=== PATIENT | female | born 1940 | race Caucasian/White ===

== ENCOUNTER 2020-07-20 05:10 | Day surgery (SDC) | payer OTHER ==
--- OUTSIDE RECORDS SUMMARY | 2020-07-17 08:40 | XMS ---
:1940 Author Organization [facility] Support Name Relationship Address Phone RE, RETIRED Unavailable Unavailable Unavailable RE Unavailable Unavailable Unavailable RETIRED Unavailable Unavailable Unavailable AMALIA BRANCH DAUGHTER [address] [place] [address] Re-disclosure Warning The records that you are about to access may contain information from federally- assisted alcohol or drug abuse programs. If such information is present, then the following federally mandated warning applies: This information has been disclosed to you from records protected by federal confidentiality rules (42 CFR part 2). The federal rules prohibit you from making any further disclosure of this information unless further disclosure is expressly permitted by the written consent of the person to whom it pertains or as otherwise permitted by 42 CFR part 2. A general authorization for the release of medical or other information is NOT sufficient for this purpose. The Federal rules restrict any use of the information to criminally investigate or prosecute any alcohol or drug abuse patient.The records that you are about to access may contain highly sensitive health information, the redisclosure of which is protected by Article 27-F of the [facility] Public Health law. If you continue you may haveaccess to information: Regarding HIV / AIDS; Provided by facilities licensed or operated by the [facility] Office of Mental Health; or Provided by the [facility] Office for People With Developmental Disabilities. If such information is present, then the following [facility] mandated warning applies: This information has been disclosed to you from confidential records which are protected by state law. State law prohibits you from making any further disclosure of this information without the specific written consent of the person to whom it pertains, or as otherwise permitted by law. Any unauthorized further disclosure in violation of state law may result in a fine or senior living sentence or both. A general authorization for the release of medical or other information is NOT sufficient authorization for further disclosure. Allergies and Adverse Reactions Type Description Substance Reaction Status Data Source(s) Drug allergy doxylamine [facility] Drug allergy acetaminophen acetaminophen SHORTNESS OF [facility] Drug allergy ciprofloxacin HCl ciprofloxacin HCl [facility] Drug allergy pseudoephedrine HCl pseudoephedrine HCl SHORTNESS OF [place] [facility] Drug allergy dextromethorphan HBr dextromethorphan HBr SHORTNESS OF [place] [facility] Encounters Encounter Providers Location Date Indications Data Source(s ) Outpatient 09/01/2019 [facility] 01:52:00 PM EDT [facility] Insurance Providers Payer name Policy type Policy ID Covered Covered republican's Policy P irena / Coverage republican ID relationship to [employer] ormation type [employer] H[employer] MEDICARE [id number] SP [id number] VIP 1 HIP MONTE [id number] PT [id number] 01 MCARE 1 Problems, Conditions, and Diagnoses Code Display Name Description Problem Type Effective Dates Data Source(s) Z80.3 Family history of Z80.3 Diagnosis 09/01/2019 [facility] malignant neoplasm 01:52:00 PM EDT [facility] breast Z12.31 Encounter for Z12.31 Diagnosis 09/01/2019 [facility] s screening 01:52:00 PM EDT Hospital mammogram for malignant neoplasm of breast
[2020-07-19 14:42] VITALS: BMI 24.0
[~2020-07-20 05:10] MED LIST: BSS (NA/CA/MG/K) BALANCED SALT SOLUTION OPHTH SOLN 15 ML BOTTLE OS ONE; CHONDROITIN SU A/HYALUR SOD 1 KIT IO ONE; EPINEPHrine/PF 1 MG/1 ML (1:1,000) AMPULE SQ ONE; LIDOCAINE HCL 1% PRESERVATIVE FREE - 30ML VIAL IO ONE; POVIDONE-IODINE 5% OPHTHALMIC PREP 30 ML SOLUTION OS ONE; TETRACAINE 0.5% OPHTH SOLN 2 ML BOTTLE OS ONE; TOBRAMYCIN/DEXAMETHASONE OPHTH. OINTMENT 1 TUBE OS ONE
[2020-07-20] MEDS ORDERED: LIDOCAINE HCL/PF 1% SDV 5ML VIAL ONE (06:43)
[2020-07-20] MEDS ORDERED: POVIDONE-IODINE 5% OPHTHALMIC PREP 30 ML SOLUTION ONE (06:43)
[2020-07-20] MEDS ORDERED: TETRACAINE 0.5% OPHTH SOLN 2 ML BOTTLE ONE (06:43)
[2020-07-20] MEDS ORDERED: TOBRAMYCIN/DEXAMETHASONE OPHTH. OINTMENT 1 TUBE ONE (06:45)
[2020-07-20] MEDS ORDERED: CHONDROITIN SU A/HYALUR SOD 1 KIT ONE (06:45)
[2020-07-20] MEDS ORDERED: PHENYLEPHRINE 2.5% OPHTH SOLN 15 ML BOTTLE OP SCH (07:30)
[2020-07-20] MEDS ORDERED: TROPICAMIDE 1% OPHTH SOLN 15 ML BOTTLE OP SCH (07:30)
[2020-07-20] MEDS ORDERED: KETOROLAC TROMETHAMINE 0.5% EYE DROP 1 DROP DROPS OP SCH (07:30)
[2020-07-20] MEDS ORDERED: TROPICAMIDE 1% OPHTH SOLN 15 ML BOTTLE ONE (07:32)
[2020-07-20] MEDS ORDERED: DICLOFENAC SODIUM 0.1% OPHTHALMIC 2.5ML BOTTLE ONE (07:32)
[2020-07-20] MEDS ORDERED: TROPICAMIDE 1% OPHTH SOLN 15 ML BOTTLE OS ONE ×3 (08:05→08:25)
[2020-07-20] MEDS ORDERED: TOBRAMYCIN 0.3% OPHTH SOLN 5 ML BOTTLE OS ONE ×3 (08:05→08:25)
[2020-07-20] MEDS ORDERED: PHENYLEPHRINE 2.5% OPHTH SOLN 15 ML BOTTLE OS ONE ×3 (08:05→08:25)
[2020-07-20] MEDS ORDERED: KETOROLAC TROMETHAMINE 0.5% EYE DROP 1 DROP DROPS OS ONE ×3 (08:05→08:25)
[2020-07-20] MEDS ORDERED: MIDAZOLAM HCL 2 MG/2 ML SINGLE DOSE VIAL ONE (09:34)
--- NOTE | 2020-07-20 09:42 | HP ---
- Patient Scheduled date of Surgery: 07/20/20 Scheduled Surgical Procedure: Phacoemulsification and cataract extraction with PCIOL (complex due to miosis) Affected Eye: Left Chief Complaint (Indication for surgery): Decreased vision affecting ADLs - Ocular History Other Eye History: Other (ARMD) Eye Medications: tobramycin Previous Eye Surgery: none - Medical History Illnesses: Hypertension, Other (afib, thyroid disesase, costochondritis) Current Medications: Ambulatory Orders Amlodipine Besylate [Norvasc -] 5 mg PO DAILY 07/19/20 Aspirin Coated [Ecotrin -] 81 mg PO DAILY 07/19/20 Hydrochlorothiazide [Hctz -] 25 mg PO DAILY 07/19/20 Losartan Potassium [Cozaar] 100 mg PO DAILY 07/19/20 Spironolactone [Aldactone] 25 mg PO DAILY 07/19/20 Allergies/Adverse Reactions: Allergies Allergy/AdvReac Type Severity Reaction Status Date / Time acetaminophen [From NyQuil] Allergy Verified 07/20/20 07:35 ciprofloxacin [From Cipro] Allergy Verified 07/20/20 07:35 dextromethorphan Allergy Verified 07/20/20 07:35 [From NyQuil] doxylamine [From NyQuil] Allergy Verified 07/20/20 07:35 pseudoephedrine [From NyQuil] Allergy Verified 07/20/20 07:35 Ocular Examination - Best Corrected Visual Acuity Distance: Right eye: 20/40 Distance: Left eye: 20/40-3 - External/Slit Lamp Examination Abnormalities: band k nasally and temporally - Intraocular Pressure Intraocular Pressure - Right eye: 20 Intraocular Pressure-Left eye: 19 - Lens Lens: 2+ NS 1+ cortical change - Vitreous/Retina Vitreous/Retina: C:D 0.2 m: rpe hypertrophy, p wnl v wnl - Special Examination M - Right eye: +1.75-1.00 x 105 M - Left eye: +2.25-2.00 x 060 K - Right eye: 45/45.25 x 64 K - Left eye: 44.50/46.0 x147 AL - Right eye: 22.71 AL - Left eye: 22.54 IOL bag: +22.0 AUOOTO IOL sulcus: +21.0 MN60 AC IOL AC: +19.0 MTA 4uo - Impression Impression: Cataract Left Eye - Plan Plan: Phacoemulsification and cataract extraction - IOL Left eye (with malyugan ring) Post-hospital care will be provided in office on: 07/21/20
--- NOTE | 2020-07-20 09:43 | HP ---
History & Physical Update - History History: No Change - Physical Physical: No Change - Assessment Assessment: No Change - Plan Plan: No Change (H and p reviewed from 06/30/[address] Vasquez, no changes)
[2020-07-20] MEDS ORDERED: TOBRAMYCIN 0.3% OPHTH SOLN 5 ML BOTTLE OS SCH (10:00)
[2020-07-20] MEDS ORDERED: TETRACAINE 0.5% OPHTH SOLN 2 ML BOTTLE OS ONE (10:01)
[2020-07-20] MEDS ORDERED: POVIDONE-IODINE 5% OPHTHALMIC PREP 30 ML SOLUTION OS ONE (10:04)
[2020-07-20] MEDS ORDERED: CHONDROITIN SU A/HYALUR SOD 1 KIT IO ONE (10:09)
[2020-07-20] MEDS ORDERED: LIDOCAINE HCL 1% PRESERVATIVE FREE - 30ML VIAL IO ONE (10:09)
[2020-07-20] MEDS ORDERED: BSS (NA/CA/MG/K) BALANCED SALT SOLUTION OPHTH SOLN 15 ML BOTTLE OS ONE (10:09)
[2020-07-20] MEDS ORDERED: EPINEPHrine/PF 1 MG/1 ML (1:1,000) AMPULE SQ ONE (10:18)
[2020-07-20] MEDS ORDERED: TOBRAMYCIN/DEXAMETHASONE OPHTH. OINTMENT 1 TUBE OS ONE (10:34)
--- NOTE | 2020-07-20 10:38 | OP ---
Ophthalmology Operative Note Pre-Operative Diagnosis: Cataract (miosis, complex) Affected Eye: Left Operation: Other (with malyugan ring) Findings: miosis and cataract left eye Post-Operative Diagnosis: Same as Pre-op It Security Specialist: Tahir Anesthesiologist: Klaudia Luna Anesthesia: Topical Specimens Removed: none Estimated blood loss: < 1 cc Drains & Tubes with Location: none Operative Report Dictated: Yes
--- NOTE | 2020-07-20 11:14 | OP ---
DATE OF OPERATION: 07/20/2020 PREOPERATIVE DIAGNOSIS: Nuclear sclerotic cataract and myosis, left eye. POSTOPERATIVE DIAGNOSIS: Nuclear sclerotic cataract and myosis, left eye. PROCEDURE: Phacoemulsification and cataract extraction with insertion of posterior chamber intraocular lens using Malyugin ring, left eye. SURGEON: Aimee Alegre MD SEWAGE DISPOSAL ENGINEER: None. ANESTHESIA: Topical. ANESTHESIOLOGIST: Klaudia Torres OPERATIVE PROCEDURE: The patient received Tetracaine eye drops and was gently sedated and prepped and draped in the usual sterile fashion so as to expose only the left eye. Ophthalmic Betadine was instilled into the inferior fornix and lashes were taped out of the surgical field. An eyelid speculum was placed into the left eye. Paracentesis was made in inferior temporal clear cornea at the limbus. Then 0.5 mL of nonpreserved lidocaine 1% was injected into the anterior chamber and then 1 mL of dilute epinephrine 1:10,000 was injected into the anterior chamber to improve pupillary dilation. Viscoelastic material was instilled into the anterior chamber via the paracentesis. After the viscoelastic was placed in the eye, a Malyugin ring was used to stretch the pupil. A 2.4-mm keratome blade was then used to create the main incision in temporal clear cornea at the limbus. A continuous curvilinear capsulorhexis was performed using a cystotome and Utrata forceps. Hydrodissection of the lens cortex was performed using BSS on a cannula until the nucleus was noted to be freely rotating. The phacoemulsification tip was then inserted via the main wound and used to scope 2 perpendicular grooves into the lens nucleus. The nucleus was cracked into 4 quadrants. Each quadrant was lifted out of the capsule into the iris plane and individually phacoemulsified. The remaining cortical material was then aspirated using the irrigation/aspiration port. The capsular bag was inflated using ProVisc and a preloaded AcrySof lens model [id number] power +22.0 diopters was injected into the capsular bag. It was centered using a Sinskey hook. The José Miguel hook was inserted and used to displace the Malyugin ring, which was then disinserted using the injector. The residual viscoelastic material was removed from the anterior chamber using irrigation and aspiration. The wound edges were hydrated using BSS. The wound was tested for leakage and was found to be watertight. Tobradex ointment was placed in the eye, and the speculum was removed from the eye, and the eyelid was closed. A sterile dressing and shield were placed over the eye. The patient was transferred to the recovery room in stable condition, told to follow up in 1 day. AIMEE ALEGRE M.D. [id number] MTDD
[2020-07-20] MEDS ORDERED: ACETAMINOPHEN 325 MG TABLET (FP) PO PRN (11:46)
[2020-07-20] MEDS ORDERED: ONDANSETRON 4 MG/2 ML VIAL IVPUSH PRN (11:46)
[2020-07-20] MEDS ORDERED: LACTATED RINGERS SOLUTION 1,000 ML IV SCH (12:00)
[2020-07-20 12:09] VITALS: BP 126/62; PULSE 56; TEMP 97.3
== END 2020-07-20 11:40 | disposition home or self-care (01) ==
LOC: JASU-SURG 05:10
PROVIDERS: ATTEND Ophthalmology
PROC: 08RK3JZ Replacement of Left Lens with Synthetic Substitute, Percutaneous Approach (ICD-10-PCS; principal; 2020-07-20 09:30)
DX: H25.12 Age-related nuclear cataract, left eye (principal); H57.03 Miosis

== ENCOUNTER 2021-03-22 04:26 | Day surgery (SDC) | payer OTHER ==
[2021-03-21 14:57] VITALS: BMI 23.8
[~2021-03-22 04:26] MED LIST changes: +BSS (NA/CA/MG/K) BALANCED SALT SOLUTION OPHTH SOLN 15 ML BOTTLE OD ONE; -BSS (NA/CA/MG/K) BALANCED SALT SOLUTION OPHTH SOLN 15 ML BOTTLE OS ONE; +POVIDONE-IODINE 5% OPHTHALMIC PREP 30 ML SOLUTION OD ONE; -POVIDONE-IODINE 5% OPHTHALMIC PREP 30 ML SOLUTION OS ONE; -TETRACAINE 0.5% OPHTH SOLN 2 ML BOTTLE OS ONE; +TETRACAINE 0.5% OPHTH SOLN 2 ML BOTTLE TP ONE; -TOBRAMYCIN/DEXAMETHASONE OPHTH. OINTMENT 1 TUBE OS ONE; +TOBRAMYCIN/DEXAMETHASONE OPHTH. OINTMENT 1 TUBE TP ONE
[2021-03-22] MEDS ORDERED: TROPICAMIDE 1% OPHTH SOLN 15 ML BOTTLE ONE (06:12)
[2021-03-22] MEDS ORDERED: DICLOFENAC SODIUM 0.1% OPHTHALMIC 2.5ML BOTTLE ONE (06:12)
[2021-03-22] MEDS ORDERED: PHENYLEPHRINE 2.5% OPHTH SOLN 15 ML BOTTLE OD ONE ×3 (06:30→06:50)
[2021-03-22] MEDS ORDERED: DICLOFENAC SODIUM 0.1% OPHTHALMIC 2.5ML BOTTLE OD ONE ×3 (06:30→06:50)
[2021-03-22] MEDS ORDERED: TROPICAMIDE 1% OPHTH SOLN 15 ML BOTTLE OD ONE ×3 (06:30→06:50)
[2021-03-22] MEDS ORDERED: TOBRAMYCIN 0.3% OPHTH SOLN 5 ML BOTTLE OD ONE ×3 (07:00→07:10)
[2021-03-22] MEDS ORDERED: TOBRAMYCIN/DEXAMETHASONE OPHTH. OINTMENT 1 TUBE ONE (07:13)
[2021-03-22] MEDS ORDERED: EPINEPHrine/PF 1 MG/1 ML (1:1,000) AMPULE ONE (07:13)
[2021-03-22] MEDS ORDERED: BSS (NA/CA/MG/K) BALANCED SALT SOLUTION OPHTH SOLN 15 ML BOTTLE ONE (07:14)
[2021-03-22] MEDS ORDERED: LIDOCAINE HCL/PF 1% SDV 5ML VIAL ONE (07:14)
[2021-03-22] MEDS ORDERED: POVIDONE-IODINE 5% OPHTHALMIC PREP 30 ML SOLUTION ONE (07:14)
[2021-03-22] MEDS ORDERED: TOBRAMYCIN 0.3% OPHTH SOLN 5 ML BOTTLE OD SCH (07:30)
[2021-03-22] MEDS ORDERED: TETRACAINE 0.5% OPHTH SOLN 2 ML BOTTLE TP ONE (07:53)
[2021-03-22] MEDS ORDERED: MIDAZOLAM HCL 2 MG/2 ML SINGLE DOSE VIAL ONE (07:53)
[2021-03-22] MEDS ORDERED: POVIDONE-IODINE 5% OPHTHALMIC PREP 30 ML SOLUTION OD ONE (07:54)
[2021-03-22] MEDS ORDERED: BSS (NA/CA/MG/K) BALANCED SALT SOLUTION OPHTH SOLN 15 ML BOTTLE OD ONE (08:04)
[2021-03-22] MEDS ORDERED: LIDOCAINE HCL 1% PRESERVATIVE FREE - 30ML VIAL IO ONE (08:04)
[2021-03-22] MEDS ORDERED: CHONDROITIN SU A/HYALUR SOD 1 KIT IO ONE (08:04)
[2021-03-22] MEDS ORDERED: EPINEPHrine/PF 1 MG/1 ML (1:1,000) AMPULE SQ ONE (08:12)
[2021-03-22] MEDS ORDERED: TOBRAMYCIN/DEXAMETHASONE OPHTH. OINTMENT 1 TUBE TP ONE (08:24)
[2021-03-22 09:14] VITALS: TEMP 97.9
[2021-03-22 09:18] VITALS: BP 102/55; PULSE 55
[2021-03-22] MEDS ORDERED: ACETAMINOPHEN 325 MG TABLET (FP) PO PRN (12:18)
[2021-03-22] MEDS ORDERED: ONDANSETRON 4 MG/2 ML VIAL IVPUSH PRN (12:18)
[2021-03-22] MEDS ORDERED: LACTATED RINGERS SOLUTION 1,000 ML IV SCH (12:30)
== END 2021-03-22 09:35 | disposition home or self-care (01) ==
LOC: JASU-SURG 04:26
PROVIDERS: ATTEND Ophthalmology
PROC: 08RJ3JZ Replacement of Right Lens with Synthetic Substitute, Percutaneous Approach (ICD-10-PCS; principal; 2021-03-22 08:30)
DX: H25.11 Age-related nuclear cataract, right eye (principal); H57.03 Miosis